=== PATIENT | female | born 1935 | race Two or more races ===

== ENCOUNTER 2018-01-14 23:37 | Inpatient (IN) | payer OTHER ==
[~2018-01-14] VITALS: Ht 160 cm; Wt 95.5 kg
[2018-01-15] VITALS (7 sets, daily range): BP systolic 104–127; BP diastolic 49–75
[2018-01-15 00:02] LABS: BASOPHIL % 0.1 % (0-2); PLATELET COUNT 308 x10^3mcL (130-400)
[2018-01-15 00:05] LABS: RED CELL DISTRIBUTION WIDTH 14.7 % (11.5-14.5)
[2018-01-15 00:20] LABS: ALBUMIN 1.4 g/dL (3.4-5.0); ALKALINE PHOSPHATASE 225 U/L (46-116); ALT/SGPT 15 U/L (14-59); AST/SGOT 14 U/L (15-37); BILIRUBIN TOTAL 0.3 mg/dL (0.20-1.00); CALCIUM 8.5 mg/dL (8.5-10.1); CHLORIDE SERUM 99 mmol/L (98-107); GLUCOSE SERUM 165 mg/dL (74-106); SODIUM SERUM 129 mmol/L (136-145); TOTAL PROTEIN, SERUM 6.6 g/dL (6.4-8.2)
[2018-01-15 00:22] LABS: POTASSIUM SERUM 6.6 mmol/L (3.5-5.1)
[2018-01-15 00:23] LABS: CARBON DIOXIDE 9.6 mmol/L (21-32); CREATININE SERUM 4.2 mg/dL (0.6-1.0)
[2018-01-15] MEDS ORDERED: OMEPRAZOLE40 M1 PO (02:09)
[2018-01-15] MEDS ORDERED: LATANOPROST2.5 ML (02:09)
[2018-01-15] MEDS ORDERED: AMITRIPTYLINE H25 MG PO (02:10)
[2018-01-15] MEDS ORDERED: CELEBREX200 MG PO (02:10)
[2018-01-15] MEDS ORDERED: VITAMIN D32000 I2 PO (02:10)
[2018-01-15] MEDS ORDERED: TYLENOL WITH CO1 TA2 (02:11)
[2018-01-15] MEDS ORDERED: ALDACTONE25 MG PO (02:12)
[2018-01-15] MEDS ORDERED: PEPCID20 MG PO (02:13)
[2018-01-15] MEDS ORDERED: NOR5 PO (02:13)
[2018-01-15] MEDS ORDERED: LABETALOL HYDR300 MG PO (02:13)
[2018-01-15] MEDS ORDERED: ASPIR 8181 MG (02:14)
[2018-01-15] MEDS ORDERED: FERROUS SULFAT325 M2 (02:14)
[2018-01-15] MEDS ORDERED: COLACE100 MG (02:15)
[2018-01-15] MEDS ORDERED: NATURE'S BLEND500 M3 (02:15)
[2018-01-15 04:45] LABS: MAGNESIUM 2.1 mg/dL (1.8-2.4); PHOSPHOROUS 7.3 mg/dL (2.5-4.9)
[2018-01-15 04:48] LABS: CHOLESTEROL/HDL RATIO 3.9
[2018-01-15 04:50] LABS: T3 TOTAL 0.34 ng/mL
[2018-01-15 04:51] LABS: FREE T4 0.66 ng/dL (0.76-1.46)
[2018-01-15 04:53] LABS: T4(THYROXINE) 2.7 ug/dL (4.7-13.3)
[2018-01-15 09:48] LABS: PLATELET COUNT 306 x10^3mcL (130-400)
[2018-01-15 09:56] LABS: RED CELL DISTRIBUTION WIDTH 14.6 % (11.5-14.5)
[2018-01-15 10:35] LABS: CALCIUM 7.6 mg/dL (8.5-10.1); CHLORIDE SERUM 106 mmol/L (98-107); CREATININE SERUM 3.4 mg/dL (0.6-1.0); GLUCOSE SERUM 83 mg/dL (74-106); POTASSIUM SERUM 5.2 mmol/L (3.5-5.1); SODIUM SERUM 133 mmol/L (136-145)
[2018-01-15 10:36] LABS: CARBON DIOXIDE 9.9 mmol/L (21-32)
[2018-01-15 11:29] LABS: MONOCYTE 7 % (0-7); SEGMENTED NEUTROPHILS 52 % (37-75)
[2018-01-15 11:31] LABS: BAND NEUTROPHIL 28 % (0-10); BASOPHIL 0 % (0-2); METAMYELOCTE 2 % (0-2); MYELOCYTE 2 % (0-2); PLATELET MORPHOLOGY PLATELETS NORMAL; burr cell (echinocyte) 1+; ovalocyte/elliptocyte 1+; rbc morphology (normal/abnorm) ABNORMAL (NORMAL)
[2018-01-15 14:35] LABS: UA SPECIFIC GRAVITY 1.025 (1.005-1.035); microscopic required? YES; urine erythrocyte 2+ (NEGATIVE)
[2018-01-15 18:48] LABS: CALCIUM 7.6 mg/dL (8.5-10.1); CARBON DIOXIDE 16.1 mmol/L (21-32); CHLORIDE SERUM 105 mmol/L (98-107); CREATININE SERUM 3.4 mg/dL (0.6-1.0); GLUCOSE SERUM 84 mg/dL (74-106); SODIUM SERUM 136 mmol/L (136-145)
[2018-01-16 03:30] VITALS: BP 94/58
[2018-01-16 04:59] LABS: PLATELET COUNT 303 x10^3mcL (130-400); RED CELL DISTRIBUTION WIDTH 14.1 % (11.5-14.5)
[2018-01-16 05:07] LABS: CALCIUM 7.3 mg/dL (8.5-10.1); CARBON DIOXIDE 22.1 mmol/L (21-32); CHLORIDE SERUM 105 mmol/L (98-107); CREATININE SERUM 3.4 mg/dL (0.6-1.0); GLUCOSE SERUM 92 mg/dL (74-106); MAGNESIUM 1.5 mg/dL (1.8-2.4); PHOSPHOROUS 5.3 mg/dL (2.5-4.9); POTASSIUM SERUM 4.6 mmol/L (3.5-5.1); SODIUM SERUM 140 mmol/L (136-145)
[2018-01-16 05:30] LABS: BAND NEUTROPHIL 17 % (0-10); BASOPHIL 0 % (0-2); METAMYELOCTE 1 % (0-2); MONOCYTE 3 % (0-7); SEGMENTED NEUTROPHILS 77 % (37-75)
[2018-01-16 05:32] LABS: burr cell (echinocyte) 1+; rbc morphology (normal/abnorm) ABNORMAL (NORMAL)
[2018-01-16 05:33] LABS: PLATELET MORPHOLOGY PLATELETS NORMAL
[2018-01-16 07:55] VITALS: BP 110/55
[2018-01-16 08:56] LABS: ALPHA FETOPROTEIN TUMOR MARKER 3.8 ng/mL (0.0-8.3); CA 125 28.7 U/mL (0.0-38.1)
[2018-01-16 15:30] VITALS: BP 94/49
[2018-01-16 17:26] LABS: PLATELET COUNT 284 x10^3mcL (130-400); RED CELL DISTRIBUTION WIDTH 14.4 % (11.5-14.5)
[2018-01-16 17:35] LABS: CALCIUM 6.9 mg/dL (8.5-10.1); CARBON DIOXIDE 23.4 mmol/L (21-32); CHLORIDE SERUM 104 mmol/L (98-107); GLUCOSE SERUM 105 mg/dL (74-106); POTASSIUM SERUM 4.4 mmol/L (3.5-5.1); SODIUM SERUM 141 mmol/L (136-145)
[2018-01-16 18:07] LABS: BAND NEUTROPHIL 20 % (0-10); BASOPHIL 0 % (0-2); METAMYELOCTE 1 % (0-2); MONOCYTE 6 % (0-7); MYELOCYTE 1 % (0-2); SEGMENTED NEUTROPHILS 67 % (37-75); rbc morphology (normal/abnorm) ABNORMAL (NORMAL)
[2018-01-16 18:09] LABS: PLATELET MORPHOLOGY PLATELETS NORMAL; ovalocyte/elliptocyte 1+; target cell (codocyte) 1+
[2018-01-16 20:00] VITALS: BP 93/31
[2018-01-17] VITALS (16 sets, daily range): BP systolic 93–121; BP diastolic 50–75
[2018-01-17 04:13] LABS: CALCIUM 6.9 mg/dL (8.5-10.1); CARBON DIOXIDE 20.7 mmol/L (21-32); CREATININE SERUM 2.8 mg/dL (0.6-1.0); GLUCOSE SERUM 101 mg/dL (74-106); MAGNESIUM 1.6 mg/dL (1.8-2.4); PHOSPHOROUS 4.2 mg/dL (2.5-4.9)
[2018-01-17 04:26] LABS: CHLORIDE SERUM 102 mmol/L (98-107); SODIUM SERUM 135 mmol/L (136-145)
[2018-01-17 06:51] LABS: PLATELET COUNT 282 x10^3mcL (130-400); RED CELL DISTRIBUTION WIDTH 14.4 % (11.5-14.5)
[2018-01-17 09:19] LABS: BAND NEUTROPHIL 35 % (0-10); METAMYELOCTE 3 % (0-2); MONOCYTE 3 % (0-7); SEGMENTED NEUTROPHILS 50 % (37-75)
[2018-01-17 09:22] LABS: rbc morphology (normal/abnorm) ABNORMAL (NORMAL)
[2018-01-17 09:23] LABS: PLATELET MORPHOLOGY PLATELETS NORMAL
[2018-01-17 17:46] LABS: CALCIUM 7.2 mg/dL (8.5-10.1); CARBON DIOXIDE 22.5 mmol/L (21-32); CHLORIDE SERUM 105 mmol/L (98-107); CREATININE SERUM 2.7 mg/dL (0.6-1.0); GLUCOSE SERUM 118 mg/dL (74-106); SODIUM SERUM 139 mmol/L (136-145)
[2018-01-18] VITALS (16 sets, daily range): BP systolic 83–135; BP diastolic 46–70
[2018-01-18 05:40] LABS: CALCIUM 7.1 mg/dL (8.5-10.1); CHLORIDE SERUM 103 mmol/L (98-107); CREATININE SERUM 2.6 mg/dL (0.6-1.0); GLUCOSE SERUM 117 mg/dL (74-106); MAGNESIUM 2.2 mg/dL (1.8-2.4); PHOSPHOROUS 3.6 mg/dL (2.5-4.9); POTASSIUM SERUM 3.2 mmol/L (3.5-5.1); SODIUM SERUM 135 mmol/L (136-145)
[2018-01-18 05:44] LABS: PLATELET COUNT 247 x10^3mcL (130-400); RED CELL DISTRIBUTION WIDTH 14.5 % (11.5-14.5)
[2018-01-18 05:59] LABS: BAND NEUTROPHIL 6 % (0-10); METAMYELOCTE 3 % (0-2); MONOCYTE 6 % (0-7); SEGMENTED NEUTROPHILS 83 % (37-75)
[2018-01-18 06:02] LABS: PLATELET MORPHOLOGY PLATELETS NORMAL; rbc morphology (normal/abnorm) ABNORMAL (NORMAL)
[2018-01-19] VITALS (16 sets, daily range): BP systolic 83–118; BP diastolic 47–68
[2018-01-19 04:28] LABS: ALKALINE PHOSPHATASE 141 U/L (46-116); ALT/SGPT 15 U/L (14-59); AST/SGOT 13 U/L (15-37); BILIRUBIN TOTAL 0.3 mg/dL (0.20-1.00); CHLORIDE SERUM 103 mmol/L (98-107); CREATININE SERUM 2.3 mg/dL (0.6-1.0); GLUCOSE SERUM 123 mg/dL (74-106); MAGNESIUM 1.9 mg/dL (1.8-2.4); PHOSPHOROUS 2.9 mg/dL (2.5-4.9); SODIUM SERUM 137 mmol/L (136-145)
[2018-01-19 04:37] LABS: POTASSIUM SERUM 2.9 mmol/L (3.5-5.1); TOTAL PROTEIN, SERUM 4.3 g/dL (6.4-8.2)
[2018-01-19 04:45] LABS: BASOPHIL % 0.4 % (0-2); PLATELET COUNT 285 x10^3mcL (130-400)
[2018-01-20] VITALS (16 sets, daily range): BP systolic 86–115; BP diastolic 52–69; Ht 160 cm; Wt 95.5 kg
[2018-01-20 05:46] LABS: BASOPHIL % 0.1 % (0-2); PLATELET COUNT 227 x10^3mcL (130-400)
[2018-01-20 05:54] LABS: RED CELL DISTRIBUTION WIDTH 14.8 % (11.5-14.5)
[2018-01-20 05:56] LABS: CALCIUM 8.2 mg/dL (8.5-10.1); CHLORIDE SERUM 102 mmol/L (98-107); CREATININE SERUM 2.4 mg/dL (0.6-1.0); GLUCOSE SERUM 103 mg/dL (74-106); MAGNESIUM 1.5 mg/dL (1.8-2.4); PHOSPHOROUS 2.4 mg/dL (2.5-4.9); POTASSIUM SERUM 3.5 mmol/L (3.5-5.1); SODIUM SERUM 134 mmol/L (136-145)
[2018-01-21] VITALS (16 sets, daily range): BP systolic 90–117; BP diastolic 57–77
[2018-01-21 05:22] LABS: PLATELET COUNT 251 x10^3mcL (130-400); RED CELL DISTRIBUTION WIDTH 14.2 % (11.5-14.5)
[2018-01-21 05:33] LABS: CALCIUM 8.3 mg/dL (8.5-10.1); CARBON DIOXIDE 21.1 mmol/L (21-32); CHLORIDE SERUM 101 mmol/L (98-107); CREATININE SERUM 2.6 mg/dL (0.6-1.0); GLUCOSE SERUM 124 mg/dL (74-106); PHOSPHOROUS 3.5 mg/dL (2.5-4.9); SODIUM SERUM 135 mmol/L (136-145)
[2018-01-21 05:54] LABS: BASOPHIL % 0 % (0-2)
[2018-01-22] VITALS (17 sets, daily range): BP systolic 11–116; BP diastolic 61–77
[2018-01-22 05:44] LABS: CALCIUM 8.4 mg/dL (8.5-10.1); CARBON DIOXIDE 20.3 mmol/L (21-32); CHLORIDE SERUM 101 mmol/L (98-107); GLUCOSE SERUM 133 mg/dL (74-106); MAGNESIUM 1.8 mg/dL (1.8-2.4); PHOSPHOROUS 3.7 mg/dL (2.5-4.9); POTASSIUM SERUM 3.6 mmol/L (3.5-5.1); SODIUM SERUM 134 mmol/L (136-145)
[2018-01-22 06:06] LABS: BASOPHIL % 0 % (0-2); PLATELET COUNT 251 x10^3mcL (130-400); RED CELL DISTRIBUTION WIDTH 14.2 % (11.5-14.5)
[2018-01-22 14:30] LABS: AMYLASE 43 U/L (25-115); LIPASE 439 IU/L (73-393)
[2018-01-23] VITALS (12 sets, daily range): BP systolic 65–110; BP diastolic 42–66
[2018-01-23 05:31] LABS: PLATELET COUNT 197 x10^3mcL (130-400); RED CELL DISTRIBUTION WIDTH 13.2 % (11.5-14.5)
[2018-01-23 05:35] LABS: BASOPHIL % 0 % (0-2)
[2018-01-23 05:43] LABS: CALCIUM 8.5 mg/dL (8.5-10.1); CARBON DIOXIDE 23.2 mmol/L (21-32); CHLORIDE SERUM 103 mmol/L (98-107); CREATININE SERUM 3.1 mg/dL (0.6-1.0); GLUCOSE SERUM 107 mg/dL (74-106); MAGNESIUM 1.9 mg/dL (1.8-2.4); PHOSPHOROUS 4.1 mg/dL (2.5-4.9); POTASSIUM SERUM 3.6 mmol/L (3.5-5.1); SODIUM SERUM 136 mmol/L (136-145)
[2018-01-23 06:00] LABS: CK-BB 0 % (0); CK-MB 0 % (0-3); CK-MM 100 % (97-100); MACRO TYPE 1 0 % (Not Observed); MACRO TYPE 2 0 % (Not Observed)
== END 2018-01-24 03:48 | disposition expired | DRG 207 ==
LOC: ED 23:37 → IC 01-15 01:49 → DU 01-16 14:15 → IC 01-16 16:51
PROVIDERS: Emergency Medicine; Family Medicine; Internal Medicine
PROC: 05HM33Z Insertion of Infusion Device into Right Internal Jugular Vein, Percutaneous Approach (ICD-10-PCS; 2018-01-16)
PROC: B543ZZA Ultrasonography of Right Jugular Veins, Guidance (ICD-10-PCS; 2018-01-16)
PROC: 5A1955Z Respiratory Ventilation, Greater than 96 Consecutive Hours (ICD-10-PCS; principal; 2018-01-17)
PROC: 0BH17EZ Insertion of Endotracheal Airway into Trachea, Via Natural or Artificial Opening (ICD-10-PCS; 2018-01-17)
PROC: 05HN33Z Insertion of Infusion Device into Left Internal Jugular Vein, Percutaneous Approach (ICD-10-PCS; 2018-01-17)
PROC: B544ZZA Ultrasonography of Left Jugular Veins, Guidance (ICD-10-PCS; 2018-01-17)
DX: I26.99 Other pulmonary embolism without acute cor pulmonale (principal); J96.01 Acute respiratory failure with hypoxia; N17.0 Acute kidney failure with tubular necrosis; E43 Unspecified severe protein-calorie malnutrition; J15.6 Pneumonia due to other Gram-negative bacteria; R65.11 Systemic inflammatory response syndrome (SIRS) of non-infectious origin with acute organ dysfunction; E87.2 Acidosis; E87.1 Hypo-osmolality and hyponatremia; I82.411 Acute embolism and thrombosis of right femoral vein; G72.81 Critical illness myopathy; E87.5 Hyperkalemia; I10 Essential (primary) hypertension; M19.90 Unspecified osteoarthritis, unspecified site; F41.8 Other specified anxiety disorders; D64.9 Anemia, unspecified; E83.39 Other disorders of phosphorus metabolism; Z66 Do not resuscitate; Z51.5 Encounter for palliative care; Z79.82 Long term (current) use of aspirin; Z68.32 Body mass index [BMI] 32.0-32.9, adult; Z86.73 Personal history of transient ischemic attack (TIA), and cerebral infarction without residual deficits
CPT/HCPCS: 36556; 36600; 78226; 82962; 83880; 84439; 85378; 87107; 94150; A4628; A9537; A9540; C1751; J0295; J0610; J0696; J0744; J1170; J1642; J1644; J1815; J1940; J2020; J2060; J2250; J2270; J2405; J2543; J2550; J2704; J3010; J3475; J3480; J3490; J7030; J7040; P9047; Q0092; Q0162